=== PATIENT | female | born 1980 | race American Indian/Alaskan Native ===

== ENCOUNTER 2018-11-29 12:33 | Emergency (ER) | payer SELFPAY ==
[2018-11-29] MEDS ORDERED: HYDROmorphone 0.5 MG/0.5 ML Syringe IVPUSH ONE ×2 (13:13→19:42)
[2018-11-29] MEDS ORDERED: Ondansetron 4 MG/2 ML SDV IVPUSH ONE (13:13)
[2018-11-29] MEDS ORDERED: Sodium Chloride 0.9% 1,000 ML IV SCH (13:15)
--- NOTE | 2018-11-29 13:22 | EDM.PDOC ---
ED HPI GENERAL MEDICAL PROBLEM - General Chief Complaint: Skin Complaint Stated Complaint: PAIGE Time Seen by Provider: 11/29/18 12:59 Source of Information: Reports: Patient History Limitations: Reports: No Limitations - History of Present Illness INITIAL COMMENTS - FREE TEXT/NARRATIVE: Patient is a 38-year-old female who presents to the ED complaining of pain, swelling, redness, and ulceration to the right breast just lateral to the right nipple. States this has been a ongoing issue since 2015 when she was evaluated by a provider at [facility]. Patient had a mammogram which came back abnormal. She had ultrasound obtained as well which came back abnormal. She was instructed to make an appointment with oncology and general surgeon to have resection of this area. They were concerned patient had breast cancer. Again patient was evaluated in [place] this past September and referred to oncology in [place] for suspected breast cancer. She did not follow through. She was again evaluated in [place] later that month when she was attending a and received antibiotics with no resolution. She was again instructed to schedule appt with general surgery and oncology. Today area is painful, swollen, and red. She denies fever, chills, nausea or vomiting , shortness of breath, abdominal pain, or other sores as such. She denies any history of MRSA. Right Breast Pain Score (Numeric/FACES): 8 - Related Data Allergies Allergy/AdvReac Type Severity Reaction Status Date / Time carbamazepine [From Tegretol] Allergy Airway Verified 11/29/18 12:52 Tightness Home Meds: Home Meds Doxycycline [Vibramycin] 100 mg PO BID #28 cap 11/29/18 [Rx] Past Medical History - Past Health History Medical/Surgical History: Denies Medical/Surgical History Social & Family History - Tobacco Use Smoking Status *Q: Never Smoker - Caffeine Use Caffeine Use: Reports: None - Recreational Drug Use Recreational Drug Use: No ED ROS GENERAL - Review of Systems Review Of Systems: See Below Constitutional: Reports: Night Sweats, Weight Loss. Denies: Fever, Chills, Malaise, Weakness, Fatigue, Decreased Appetite HEENT: Reports: No Symptoms Respiratory: Denies: Shortness of Breath, Wheezing, Pleuritic Chest Pain, Cough , Sputum, Hemoptysis Cardiovascular: Reports: Chest Pain. Denies: Dyspnea on Exertion, Lightheadedness, Palpitations, PND, Syncope GI/Abdominal: Reports: No Symptoms : Reports: Dysuria. Denies: Discharge Musculoskeletal: Reports: No Symptoms Skin: Reports: Lesions Neurological: Reports: No Symptoms Psychiatric: Reports: No Symptoms Hematologic/Lymphatic: Reports: No Symptoms ED EXAM, SKIN/RASH Exam: See Below Exam Limited By: No Limitations General Appearance: Alert, WD/WN, No Apparent Distress Eye Exam: Bilateral Eye: Normal Inspection Ears: Hearing Grossly Normal Nose: Normal Inspection Throat/Mouth: Normal Voice, No Airway Compromise Head: Atraumatic, Normocephalic Neck: Normal Inspection, Supple Respiratory/Chest: No Respiratory Distress, Lungs Clear, Normal Breath Sounds, No Accessory Muscle Use Cardiovascular: Normal Peripheral Pulses, Regular Rate, Rhythm, No Murmur ( obvious) Peripheral Pulses: 2+: Radial (R) GI/Abdominal: Normal Bowel Sounds, Soft, Non-Tender, No Organomegaly, No Distention Back Exam: Normal Inspection. No: CVA Tenderness (L), CVA Tenderness (R) Extremities: Normal Inspection Neurological: Alert, Oriented, CN II-XII Intact, Normal Cognition, No Motor/ Sensory Deficits Psychiatric: Normal Affect, Normal Mood Skin: Warm, Dry Location, Skin: Chest (On examination the right breast there is approximately 2 cm x 2 cm ulceration to the lateral aspect of the right nipple with no purulent drainage noted. This cauterization to didn't area overlying nipple noted. No nipple discharge. Swelling noted to the right breast in comparison to the left. Large area of erythema to the right breast circumferential.) Associated features: Warmth, Tenderness, Swelling, Inflammation, Weeping (Clear drainage) Course - Vital Signs Last Recorded V/S: Last Vital Signs Temp 98.6 F 11/29/18 12:49 Pulse 71 11/29/18 12:49 Resp 16 11/29/18 12:49 BP 149/89 H 11/29/18 12:49 Pulse Ox 98 11/29/18 12:49 - Orders/Labs/Meds Orders: Active Orders 24 hr Category Date Time Status CULTURE ANAEROBIC + SMEAR [RM] Stat Lab 11/29/18 20:25 Results Labs: Laboratory Tests 11/29/18 11/29/18 Range/Units 15:08 15:08 WBC 8.76 (3.98-10.04) K/mm3 RBC 4.72 (3.98-5.22) M/mm3 Hgb 11.9 (11.2-15.7) gm/L Hct 37.9 (34.1-44.9) % MCV 80.3 (79.4-94.8) fl MCH 25.2 L (25.6-32.2) pg MCHC 31.4 L (32.2-35.5) g/dl RDW Std Deviation 42.9 (36.4-46.3) fL Plt Count 437 H (182-369) K/mm3 MPV 8.1 L (9.4-12.3) fl Neutrophils % (Manual) 79 H (40-60) % Band Neutrophils % 0 (0-10) % Lymphocytes % (Manual) 19 L (20-40) % Atypical Lymphs % 0 % Monocytes % (Manual) 1 L (2-10) % Eosinophils % (Manual) 1 (0.7-5.8) % Basophils % (Manual) 0 L (0.1-1.2) Platelet Estimate Adequate RBC Morph Comment Normal Sodium 139 (136-145) mEq/L Potassium 3.9 (3.5-5.1) mEq/L Chloride 106 (98-107) mEq/L Carbon Dioxide 21 (21-32) mEq/L Anion Gap 15.9 H (5-15) BUN 11 (7-18) mg/dL Creatinine 0.7 (0.55-1.02) mg/dL Est Cr Clr Drug Dosing 84.49 mL/min Estimated GFR (MDRD) > 60 (>60) mL/min BUN/Creatinine Ratio 15.7 (14-18) Glucose 97 (74-106) mg/dL Calcium 8.4 L (8.5-10.1) mg/dL Total Bilirubin 0.2 (0.2-1.0) mg/dL AST 15 (15-37) U/L ALT 18 (14-59) U/L Alkaline Phosphatase 71 (46-116) U/L C-Reactive Protein 3.5 H* (<1.0) mg/dL Total Protein 7.8 (6.4-8.2) g/dl Albumin 3.4 (3.4-5.0) g/dl Globulin 4.4 gm/dL Albumin/Globulin Ratio 0.8 L (1-2) Meds: Medications Discontinued Medications Generic Name Dose Route Start Last Admin Trade Name Humphrey PRN Reason Stop Dose Admin Hydromorphone HCl 0.5 mg 11/29/18 13:13 11/29/18 13:33 Dilaudid IVPUSH 11/29/18 13:14 0.5 mg ONETIME ONE Administration Hydromorphone HCl 0.5 mg 11/29/18 19:42 11/29/18 19:48 Dilaudid IVPUSH 11/29/18 19:43 0.5 mg ONETIME ONE Administration Sodium Chloride 1,000 mls @ 250 mls/hr 11/29/18 13:15 11/29/18 13:34 Normal Saline IV 250 mls/hr ASDIRECTED JEFFRY Administration Doxycycline Hyclate 100 mg/ 100 mls @ 100 mls/hr 11/29/18 16:49 11/29/18 18: 01 Sodium Chloride IV 11/29/18 17:48 100 mls/hr ONETIME ONE Administration Iohexol 100 ml 11/29/18 17:08 11/29/18 18:44 Omnipaque-300 IVPUSH 11/29/18 17:09 100 ml ONETIME ONE Administration Ondansetron HCl 4 mg 11/29/18 13:13 11/29/18 13:33 Zofran IVPUSH 11/29/18 13:14 4 mg ONETIME ONE Administration - Re-Assessments/Exams Free Text/Narrative Re-Assessment/Exam: IV established by EMS. On examination with female nurse present it appears patient has cellulitis/ulceration versus inflammatory breast cancer. She has a large area of circumferential erythema present with approximately 2 cm x 2 cm circumferential ulceration noted to the lateral aspect of the right nipple with discoloration noted to the areola. There is no drainage present. There is no drainage from the nipple noted. There is pain with palpation. Patient denies any fever, chills. There's been no night sweats. She has been losing weight although she has been eating well. She's been evaluated multiple times for this area of concern with recommendations to follow-up with oncology in fear this is breast cancer. She states she's had abnormal mammogram with concerns of having breast cancer. Denies any history of MRSA. Will go ahead and obtain basic labs including CBC, chem 14, CRP. Ultrasound of the right breast will be obtained. This is to evaluate for abscess vs inflammatory breast cancer. Dilaudid 0.5 mg IVP and also Zofran 4 mg IVP ordered. 11/29/18 14:41 Do not have results of ultrasound or labs at this time. Patient would like something to eat. I have asked for the patient to refrain from eating until we know if there is a abscess present or not. If surgery is required I do not want this to be delayed because of patient's last meal. Labs reviewed: No elevated white blood count. Hemoglobin normal. Platelet count 437. CMP was essentially normal. CRP 3.5. Patient has not provided a UA sample. 1625 Reviewed ultrasound impression: Several superficial hypoechoic areas correlating to area of ulcer. These are nonspecific but most likely represent infection. Occasionally inflammatory carcinoma can also have a similar appearance. Consider treatment with antibiotics and S findings did not completely resolve them biopsy is recommended. Ordered doxycycline 100 mg IV. 1648 Discussed results of the ultrasound and labs with Dr. Weeks [facility]. He is concerned that this is more likely inflammatory breast cancer given the patient's history. Recommended CT of the chest, abdomen, and pelvis to evaluate for met's. He would gladly see the patient in his office. Requested patient schedule appt with Generally surgery at [facility] as well [facility]. 11/29/18 19:59 CT chest impression: Dermal thickening and irregularity of the skin surface of the right breast. No breast mass. Indeterminate right axillary adenopathy. CT abdomen and pelvis impression: No sign of acute intra-abdominal pathology. Patient received additional Dilaudid 0.5 mg IV. I discussed results of the CT with the patient. She is ready to be discharged home. Plan is for patient to establish care with a PCP at [facility] this week, schedule appointment with general surgery, and schedule appt with oncology. I will discharge her on doxycycline. Return precautions discussed with the patient. She had no further questions or concerns and agrees with plan. Departure - Departure Time of Disposition: 20:15 Disposition: Home, Self-Care 01 Condition: Good Clinical Impression: Ulcer of skin of breast Cellulitis Qualifiers: Site of cellulitis: unspecified site Qualified Code(s): L03.90 - Cellulitis, unspecified - Discharge Information Prescriptions: Doxycycline [Vibramycin] 100 mg PO BID #28 cap Instructions: Cellulitis, Adult Forms: ED Department Discharge Additional Instructions: Please take the doxycycline as prescribed. Cleanse site twice daily with soap and water, pat dry, apply triple antibiotic ointment and dressing. Please establish medical care with a primary care provider at [facility] of your choice here in [place] or in [place]. Make an appt to be evaluated this week. In addition please call and make an appt with General Surgery at [facility] for further evaluation and to obtain further wound management/biopsy. Findings are concerning for infection but also may be associated with inflammatory breast cancer with prolonged history as such. Please follow through with plan. Please return back to the ED if you develop any new or worsening symptoms. For pain utilize Tylenol and ibuprofen in alternating fashion. - My Orders Last 24 Hours: My Active Orders 11/29/18 20:25 CULTURE ANAEROBIC + SMEAR [RM] Stat - Assessment/Plan Last 24 Hours: My Active Orders 11/29/18 20:25 CULTURE ANAEROBIC + SMEAR [RM] Stat
--- NOTE | 2018-11-29 16:13 | US ---
Right breast ultrasound: Multiple real-time images were obtained over superficial ulcer within the right breast at 9:00. Diffuse hypoechoic area seen superficially within the right breast in area of ulcer. Largest finding measures approximate 5.3 cm in greatest dimension. Several other hypoechoic areas are seen. Impression: 1. Several superficial hypoechoic areas correlating to area of ulcer. These are nonspecific but most likely represent infection. Occasionally inflammatory carcinoma can also have a similar appearance. Consider treatment with antibiotics and if findings do not completely resolve then biopsy is recommended. Diagnostic code #5
[2018-11-29] MEDS ORDERED: Doxycycline 100 MG in Sodium Chloride 0.9% 100 ML IV ONE (16:49)
[2018-11-29] MEDS ORDERED: Iohexol 647 MG/ML 100 ML Bottle IVPUSH ONE (17:08)
--- NOTE | 2018-11-30 11:19 | CT ---
CT chest Technique: Multiple axial sections were obtained from above the lung apices inferiorly through the lung bases. Intravenous contrast was utilized. Comparison: No prior chest imaging. Findings: Skin thickening seen within the right breast. Mild adenopathies is seen within the right axillary region. Mediastinum and hilar regions are unremarkable. No pericardial thickening is seen. Small nodule is noted within the left lung base which appears to have no calcification. Lungs otherwise are clear. No pleural effusions are seen. Bone window settings were reviewed which appear within normal limits for the patient's age. Impression: 1. 4 mm nodule within the left lung base. This shows no calcifications. If patient is a smoker, recommend repeat noncontrast chest CT in one year. If patient is not a smoker, this can be ignored. 2. Skin thickening within the right breast presumably due to cellulitis. Mild adenopathy within the right axillary region most likely representing reactive nodes from the right breast process. 3. No additional abnormality seen on CT study of the chest. Note: Recommendation as noted on recent ultrasound is again suggested. Diagnostic code #3 I agree with preliminary report from [employer] [facility] [employer], finalized on 11/29/18, 8:[address] abdomen and pelvis Technique: Multiple axial sections were obtained from above the dome of the diaphragm inferiorly through the pubic symphysis. Intravenous contrast was utilized. Small amount of oral contrast was given. Comparison: No prior abdominal imaging. Findings: Liver shows no focal parenchymal abnormality. Spleen appears within normal limits. Surgical clips are seen from prior cholecystectomy. Adrenal glands show no nodule. Pancreas is within normal limits. Kidneys show symmetric contrast enhancement with no hydronephrosis or mass. Aorta shows no aneurysm. No retroperitoneal adenopathy or mesenteric abnormalities are seen. No pelvic mass or adenopathy is seen. No free fluid or inflammatory change is seen within the abdomen or pelvis. Appendix not definitely visualized. Delayed images show contrast within the distal ureters and bladder. 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 Bony structures are otherwise unremarkable for the patient's age. Impression: 1. Incidental findings as noted above. 2. Nothing acute seen on CT study of the abdomen and pelvis. Diagnostic code #2 I agree with preliminary report from [employer] [facility] [employer], finalized on 11/29/18, 8:31 PM Central Time
== END 2018-11-29 20:52 | disposition home or self-care (01) ==
LOC: JD.ED 12:33
DX: N61.1 Abscess of the breast and nipple (principal); Z88.8 Allergy status to other drugs, medicaments and biological substances
CPT/HCPCS: 36415; 71260; 74177; 76642; 80053; 85007; 85027; 86140; 87075; 87205; 96361; 96374; 96375; 96376; 99284; J1170; J2405; J3490; J7030; J7040; Q9967

== ENCOUNTER 2019-12-14 14:07 | Emergency (ER) | payer SELFPAY ==
[2019-12-14] MEDS ORDERED: Proparacaine 0.5% Ophth Soln 15 ML Bottle EYEBOTH ONE (14:45)
[2019-12-14] MEDS ORDERED: Fluorescein 1 MG Ophth Strip EYEBOTH ONE (14:57)
--- NOTE | 2019-12-14 15:31 | EDM.PDOC ---
ED HPI GENERAL MEDICAL PROBLEM - General Chief Complaint: Eye Problems Stated Complaint: EYE PAIN Time Seen by Provider: 12/14/19 14:39 Source of Information: Reports: Patient, RN Notes Reviewed History Limitations: Reports: No Limitations - History of Present Illness INITIAL COMMENTS - FREE TEXT/NARRATIVE: Patient is a 39-year-old female who presents to the ED for evaluation of a bilateral eye complaint. Patient states that around 11 AM central time she was putting her contacts in, and states that her eye started to burn immediately after putting the contacts in [place] which took them out right away. She is questioning whether or not her contacts had actual contact solution in the case. Patient did flush her eyes at home with water and milk, but states is very painful to open her eyes at the time of exam. Patient states that she has pretty bad vision even prior to this, and has a little bit of blurriness, but cannot see what fingers I am holding up at the end of the bed with no problem. Patient denies any other sick-like symptoms. - Related Data Allergies Allergy/AdvReac Type Severity Reaction Status Date / Time carbamazepine [From Tegretol] Allergy Severe Airway Verified 12/14/19 14:40 Tightness Home Meds: Home Meds Ciprofloxacin [Ciprofloxacin 0.3% Ophth Soln] 1 drop OP Q1H 7 Days #1 bottle 12/14/19 [Rx] Ketorolac [Acular 0.5% Ophth Soln] 1 drop OP Q6H PRN #1 bottle 12/14/19 [Rx] Past Medical History HEENT History: Reports: Impaired Vision (wears glasses/contacts) Social & Family History - Tobacco Use Smoking Status *Q: Current Every Day Smoker Years of Tobacco use: 20 Packs/Tins Daily: 1 - Caffeine Use Caffeine Use: Reports: Soda - Recreational Drug Use Recreational Drug Use: Yes Recreational Drug Type: Reports: Methamphetamine ED ROS GENERAL - Review of Systems Review Of Systems: Comprehensive ROS is negative, except as noted in HPI. ED EXAM GENERAL W FULL EYE - Physical Exam Exam: See Below Exam Limited By: No Limitations General Appearance: Alert, WD/WN, No Apparent Distress Eye Exam: Bilateral Eye: Conjunctival Injection, Corneal Abrasion, EOMI Eyelids: Bilateral: Normal Appearance Conjunctiva & Sclera: Bilateral: Injected Cornea Exam: Bilateral: Corneal Ulcer, Examined with Flourescein Extraocular Movements: Bilateral: Intact Pupils: Normal Accommodation Pupillary Size: Bilateral: 3 mm Pupillary Reaction: Bilateral: Brisk Head: Atraumatic, Normocephalic Neck: Normal Inspection Respiratory/Chest: No Respiratory Distress, Lungs Clear, Normal Breath Sounds, No Accessory Muscle Use, Chest Non-Tender Cardiovascular: Normal Peripheral Pulses, Regular Rate, Rhythm, No Murmur Neurological: Alert, Oriented, Normal Cognition, No Motor/Sensory Deficits Psychiatric: Normal Affect, Normal Mood Skin Exam: Warm, Dry, Intact, Normal Color, No Rash Course - Vital Signs Last Recorded V/S: Last Vital Signs Temp 97.9 F 12/14/19 15:11 Pulse 65 12/14/19 15:11 Resp 20 12/14/19 15:11 BP 141/75 H 12/14/19 15:11 Pulse Ox 100 12/14/19 15:11 - Orders/Labs/Meds Meds: Medications Discontinued Medications Generic Name Dose Route Start Last Admin Trade Name Humphrey PRN Reason Stop Dose Admin Fluorescein Sodium 1 mg 12/14/19 14:57 12/14/19 15:04 Ful-Susana EYEBOTH 12/14/19 14:58 1 mg ONETIME ONE Administration Proparacaine HCl 2 ml 12/14/19 14:45 12/14/19 14:51 Proparacaine 0.5% Ophth Soln EYEBOTH 12/14/19 14:46 2 drop ONETIME ONE Administration - Re-Assessments/Exams Free Text/Narrative Re-Assessment/Exam: 12/14/19 15:28 Patient presents to the ED for evaluation of her bilateral eye pain. Unsure if the patient's contacts were in a saline solution or not. Nonetheless she does appear to have some corneal abrasion/ulcers to her cornea as demonstrated with fluorescein. Patient will be started on ciprofloxacin drops, as she does wear contacts from time to time. She will be directed to not wear her contacts, until she can be evaluated by eye doctor and have things checked out on a more thorough basis. Patient is okay with this plan at this time. Departure - Departure Time of Disposition: 15:31 Disposition: Home, Self-Care 01 Condition: Good Clinical Impression: Corneal ulcer of both eyes - Discharge Information *PRESCRIPTION DRUG MONITORING PROGRAM REVIEWED*: No *COPY OF PRESCRIPTION DRUG MONITORING REPORT IN PATIENT SHERINE: No Instructions: Corneal Ulcer, How to Use Eye Drops and Eye Ointments Referrals: PCP,None [Primary Care Provider] - Additional Instructions: You have been evaluated in the ED today for you bilateral eye irritation. You were identified to have a corneal abrasion/ulcer to both of your eyes. You were given some pain drops for your eyes, ketorolac, please instill 2 drops to the affected eye every 6 hours at least for the next 24 hours . You may use this up to 2-3 days if needed. Please use the ciprofloxacin eye drops, 1 drop in each eye every 4 hours while awake for the next 7 days. Recommend that you follow up with optometry [facility] for a more thorough evaluation and to make sure that everything is healing appropriately. You will have to call around and schedule yourself an appointment with the next available provider if you do not already have a current eye doctor. Please return to the ED if your symptoms should change or worsen. Sepsis Event Note (ED) - Evaluation Sepsis Screening Result: No Definite Risk - Focused Exam Vital Signs: Vital Signs Temp Pulse Resp BP Pulse Ox 12/14/19 15:11 97.9 F 65 20 141/75 H 100
== END 2019-12-14 15:50 | disposition home or self-care (01) ==
LOC: JD.ED 14:07
DX: H16.003 Unspecified corneal ulcer, bilateral (principal); F17.210 Nicotine dependence, cigarettes, uncomplicated; Z88.8 Allergy status to other drugs, medicaments and biological substances
CPT/HCPCS: 99283